=== PATIENT | female | born 1960 ===

== ENCOUNTER → 2021-03-25 | Outpatient (CLI) | payer BC ==
--- NOTE | 2021-03-25 12:27 | Diagnostic Imaging Report ---
PROCEDURE: US Gallbladder. INDICATION: Right upper quadrant pain, nausea, vomiting TECHNIQUE: Multiple grayscale sonographic images were obtained of the right upper quadrant of the abdomen. CORRELATION STUDY: None FINDINGS: LIVER: There is a small focal area of hyperechogenicity within the right hepatic lobe. Nonspecific but could reflect a small hemangioma, 0.9 cm in size. The main portal vein is patent and with normal direction of flow. Liver length 15 cm. GALLBLADDER: Shadowing, mobile gallstone measures 2.4 cm. COMMON BILE DUCT: Nondilated at 0.3 cm. AORTA/IVC: Not well visualized. PANCREAS: Visualized portions appearing unremarkable. RIGHT KIDNEY: 10.0 x 6.2 x 5.0 cm. No hydronephrosis. OTHER: None. IMPRESSION: 1. Large, nearly 3 cm gallstone. No abnormal gallbladder wall thickening or bile duct dilatation. 2. Small hyperechoic foci right hepatic lobe nonspecific but could reflect a small hemangioma. Dictated by: Dictated on workstation # [id number]
== END ==
LOC: RAD 08:32
PROVIDERS: ATTEND Surgery
DX: K80.80 Other cholelithiasis without obstruction (principal)
CPT/HCPCS: 76705

== ENCOUNTER → 2021-07-02 | Outpatient (CLI) | payer BC ==
--- NOTE | 2021-07-02 18:41 | Diagnostic Imaging Report ---
EXAMINATION: Right knee radiograph EXAM DATE: 07/02/2021 COMPARISON: None available. HISTORY: EFFUSION, PAIN RT KNEE TECHNIQUE: 2 views of the right knee FINDINGS: There is no acute fracture, dislocation, or destructive osseous process. The joint spaces are normal. The soft tissues are normal. IMPRESSION: 1. No acute osseous abnormality of the right knee. Dictated by: Dictated on workstation # [id number]
== END ==
LOC: RAD FS 16:49
PROVIDERS: ATTEND Nurse Practitioner Family
DX: M25.461 Effusion, right knee (principal); M25.561 Pain in right knee
CPT/HCPCS: 73560